=== PATIENT | female | born 1975 | race African-American/Black ===

== ENCOUNTER 2023-03-04 13:24 | Emergency (ER) | payer BC, OTHER, SELFPAY ==
[2023-03-04] MEDS ORDERED: Morphine 4 MG/ML VIAL ONE (14:41)
== END 2023-03-04 17:35 | disposition home or self-care (01) ==
LOC: CSHERS 13:24
DX: H15.092 Other scleritis, left eye (principal); I10 Essential (primary) hypertension; E78.5 Hyperlipidemia, unspecified; Z87.891 Personal history of nicotine dependence
CPT/HCPCS: 99283; J2270